=== PATIENT | male | born 1965 | race African-American/Black ===

== ENCOUNTER 2021-07-13 23:42 | Inpatient (IN) | payer MEDICAID, OTHER ==
[~2021-07-13] VITALS: Ht 175.3 cm; Wt 79.0 kg
[~2021-07-13 23:42] MED LIST: ABAC1TAB3 PO; ASPI-1079 PO; ATAZ300C PO; BUPR100T4 PO; HIV MEDS; LOSA25TA26 PO; NORV1 PO; PREN1TAB38 PO
[2021-07-14] MEDS ORDERED: MORPHINE SULFATE 4 MG/ML CPJ (NOT FOR IM USE) IV STA (01:11)
[2021-07-14] MEDS ORDERED: ONDANSETRON HCL 4MG/2ML INJ IV STA (01:11)
[2021-07-14] MEDS ORDERED: SODIUM CHLORIDE 0.9% 1,000 ML IV ONE (01:15)
[2021-07-14] MEDS ORDERED: MORPHINE SULFATE 2 MG/ML CPJ (NOT FOR IM USE) IV STA (01:37)
[2021-07-14 01:38] LABS: BASOPHILS % 0.2 % (0.0-2.0); EOSINOPHILS % 1.2 % (0.0-5.0); HEMATOCRIT. 36.6 % (42.0-52.0); HEMOGLOBIN. 12.2 g/dL (14.0-18.0); LYMPHOCYTES % 16.9 % (20.0-50.0); MEAN CORPUSCULAR HEMOGLOBIN 33.6 pg (28.0-32.0); MEAN CORPUSCULAR VOLUME 100.8 fL (80.0-94.0); MEAN PLATELET VOLUME 8.9 fl (7.4-10.4); MONOCYTES % 5.5 % (2.0-8.0); NEUTROPHILS % 76.2 % (40.0-76.0); PLATELET 237 x1000/uL (130-400); RED BLOOD CELL COUNT 3.63 mill/uL (4.7-6.1); RED CELL DISTRIBUTION WIDTH 13.7 % (11.6-14.6)
[2021-07-14 01:39] LABS: CLARITY URINE CLEAR (CLEAR); COLOR URINE YELLOW (YELLOW); KETONES URINE TRACE (NEGATIVE); LEUKOCYTE ESTERASE URINE NEGATIVE (NEGATIVE); NITRITE URINE NEGATIVE (NEGATIVE); OCCULT BLOOD URINE NEGATIVE (NEGATIVE); PROTEIN URINE NEGATIVE (NEGATIVE); SPECIFIC GRAVITY URINE 1.021 (1.005-1.030)
[2021-07-14 01:41] LABS: CHLORIDE 108 mEq/L (98-107)
[2021-07-14 02:49] LABS: PARTIAL THROMBOPLASTIN TIME 28.1 sec (23.4-31.0); PROTHROMBIN TIME 10.3 sec (9.6-11.0)
[2021-07-14] MEDS ORDERED: PIPERACILLIN/TAZOBACTAM 3.375GM/50ML PREMIX IV ONE (04:00)
[2021-07-14] MEDS ORDERED: IOHEXOL-300 100 ML BOTTLE ONE (04:10)
[2021-07-14] MEDS ORDERED: METRONIDAZOLE 500 MG PREMIX 100 ML IV ONE (04:15)
[2021-07-14] MEDS ORDERED: DIATR MEGLU/DIATRIZOATE SOLN 30ML ONE (04:35)
[2021-07-14 09:12] VITALS: BP 132/76
== END 2021-07-14 10:23 | disposition left against medical advice (07) | DRG 861 ==
LOC: ER 23:42 → MICUSO 07-14 04:51 → EDBEDREQ 07-14 04:52 → EDBEDREQTM 07-14 04:52
PROVIDERS: ADMIT Internal Medicine; ATTEND Internal Medicine
DX: G89.18 Other acute postprocedural pain (principal); I10 Essential (primary) hypertension; R10.9 Unspecified abdominal pain; Z20.822 Contact with and (suspected) exposure to COVID-19; Z79.82 Long term (current) use of aspirin; Z79.899 Other long term (current) drug therapy
CPT/HCPCS: 36415; 71045; 74176; 74177; 80053; 81003; 85025; 86850; 86900; 87426; 93005; 99291; J2270; J2405; J2543; J3490; J7030; Q9963; Q9967